=== PATIENT | female | born 1955 | race Caucasian/White ===

== ENCOUNTER → 2021-04-06 07:59 | Outpatient (CLI) | payer OTHER, SELFPAY ==
[2021-04-06 08:38] LABS: Hematocrit 43.8 % (37-47); Hemoglobin 14.3 g/dL (12.0-15.0); Mean Corp Hgb Conc 32.6 g/dL (32-36); Mean Corpuscular Hgb 28.4 pg (27.0-32.0); Mean Corpuscular Volume 86.9 fL (81-99); Platelet Count 264 K/mm3 (150-450); RBC Distribution Width CV 13.7 % (11.6-14.6); RBC Distribution Width SD 44.2 fl (35.1-43.9); Red Blood Count 5.04 M/mm3 (4.2-5.4); White Blood Count 6.9 K/mm3 (4.4-11.0)
[2021-04-06 09:29] LABS: ALB/GLOB Ratio 0.9 RATIO (0.9-2.4); AST(SGOT) 17 U/L (15-37); Alanine Aminotransfer ALT/SGPT 24 U/L (13-56); Albumin, Serum 3.5 g/dL (3.2-5.0); Alkaline Phosphatase 68 U/L (45-117); Anion Gap 5 (5-15); BUN 15 mg/dL (7-18); BUN/Creat Ratio 17.1 RATIO (10-20); Calcium,Total 8.9 mg/dL (8.5-10.1); Chloride 110 mmol/L (98-107); Cholesterol 155 mg/dL (200); Creatinine, Serum 0.88 mg/dL (0.55-1.02); EST Glomerular Filtration Rate 69 mL/min (>60); Est Glom Filt Rate - Afr Amer 84 mL/min (>60); Globulin 3.9 g/dL (2.2-4.2); Glucose 107 mg/dL (74-106); High Density Lipoprotein 56 mg/dL; Potassium 3.9 mmol/L (3.5-5.1); Protein, Total 7.4 g/dL (6.4-8.2); Sodium Level 139 mmol/L (136-145); Triglycerides 74 mg/dL; Very Low Density Lipoprotein 15 mg/dL (5-40)
== END ==
LOC: LAB 08:07
DX: E66.9 Obesity, unspecified (principal); F41.9 Anxiety disorder, unspecified; Z13.220 Encounter for screening for lipoid disorders
CPT/HCPCS: 36415; 80053; 80061; 85027

== ENCOUNTER → 2023-12-28 | Outpatient (CLI) | payer OTHER, SELFPAY | END | disposition home or self-care (01) | LOC: LABSPEC 16:05 | PROVIDERS: Referring Provider Urology; Visit Provider Urology | DX: N39.0 Urinary tract infection, site not specified (principal) | CPT/HCPCS: 87086; 87088; 87186 ==

== ENCOUNTER → 2024-01-08 | Outpatient (CLI) | payer MEDICARE, SELFPAY ==
--- NOTE | 2024-01-08 12:43 | CT_ITS ---
ACR Level 3 findings have been noted. An addendum which confirms receipt of the report will follow. HISTORY: Dysuria, recurrent UTI, history of melanoma removed from left arm. TECHNIQUE: Helically acquired images were obtained of the abdomen and pelvis before and after the intravenous administration of 100 mL Isovue 300. Delayed images also obtained. A radiation dose optimization technique was used for this scan. 589 images. COMPARISON: None. FINDINGS: LOWER CHEST: Lung bases clear. BOWEL: Small hiatal hernia. Bowel including appendix nondilated. Colonic diverticulosis without focal inflammatory change observed. PERITONEUM: No significant ascites. Enlarged mesenteric lymph nodes with surrounding stranding measuring up to 2.6 x 2.7 cm. Enlarged retroperitoneal lymph nodes measuring up to 1.3 x 2.6 cm preaortic and 1.5 x 2.6 cm left para-aortic. Mildly enlarged retrocaval lymph nodes also seen. LIVER: No enhancing mass. GALLBLADDER/BILIARY TREE: Gallbladder present. SPLEEN/PANCREAS: Homogeneous and nonenlarged. KIDNEYS: No nephrolithiasis or hydronephrosis. Subcentimeter left upper pole cyst ADRENAL GLANDS: 1.9 cm low-attenuation right adrenal nodule. VESSELS: No abdominal aortic aneurysm. Mild atherosclerosis. PELVIC ORGANS: 5 x 10 mm enhancing nodule of the right anterior bladder wall . BONES: Degenerative change. Scattered small bone islands. CT/CT Abd/Pelvis W/WO Contrast IMPRESSION: Mesenteric and retroperitoneal lymphadenopathy, suspicious for neoplasm such as lymphoma or metastatic disease. Small enhancing right bladder wall lesion, also concerning for neoplasm. Right adrenal adenoma. Small left renal cyst. Colonic diverticulosis without acute diverticulitis Electronically Signed: Yarelis Escalante MD at 12:44 EDT ,
[2024-01-08 13:10] LABS: CREATININE FINGERSTICK 1.1 mg/dL (0.55-1.02)
== END | disposition home or self-care (01) ==
PROVIDERS: Referring Provider Urology; Visit Provider Urology
DX: N30.20 Other chronic cystitis without hematuria (principal)
CPT/HCPCS: 74178; Q9967; A4216

== ENCOUNTER → 2024-01-26 | Outpatient (CLI) | payer MEDICARE, SELFPAY ==
--- NOTE | 2024-01-26 13:27 | EKG12_ITS ---
Test Reason : PRE OP Blood Pressure : / mmHG Vent. Rate : 076 BPM Atrial Rate : 076 BPM P-R Int : 104 ms QRS Dur : 072 ms QT Int : 392 ms P-R-T Axes : 003 052 044 degrees QTc Int : 441 ms Sinus rhythm with sinus arrhythmia with short [place] Otherwise normal ECG Confirmed by IRVING MENDEZ, SEPIDEH ([id number]), order editor POWER KONG ([id number]) on 01/27/2024 9:32:08 AM Referred By: Checo Gonzáles Confirmed By:THOR VILLATORO MD
[2024-01-26 14:39] LABS: Hematocrit 42.3 % (37-47); Hemoglobin 13.7 g/dL (12.0-15.0); Mean Corp Hgb Conc 32.4 g/dL (32-36); Mean Corpuscular Hgb 27.9 pg (27.0-32.0); Mean Corpuscular Volume 86.2 fL (81-99); Mean Platelet Vol. 10.9 fl (6.2-12.0); Platelet Count 265 K/mm3 (150-450); RBC Distribution Width CV 13.6 % (11.6-14.6); RBC Distribution Width SD 42.4 fl (35.1-43.9); Red Blood Count 4.91 M/mm3 (4.2-5.4); White Blood Count 9.1 K/mm3 (4.4-11.0)
[2024-01-26 15:00] LABS: Anion Gap 5 (5-15); BUN 17 mg/dL (7-18); BUN/Creat Ratio 21.6 RATIO (10-20); Calcium,Total 9.3 mg/dL (8.5-10.1); Chloride 110 mmol/L (98-107); Creatinine, Serum 0.79 mg/dL (0.55-1.02); EST Glomerular Filtration Rate 78 mL/min (>60); Est Glom Filt Rate - Afr Amer 94 mL/min (>60); Glucose 87 mg/dL (74-106); Potassium 3.7 mmol/L (3.5-5.1); Sodium Level 139 mmol/L (136-145)
== END | disposition home or self-care (01) ==
PROVIDERS: Referring Provider Urology; Visit Provider Urology
DX: Z01.810 Encounter for preprocedural cardiovascular examination (principal); Z01.812 Encounter for preprocedural laboratory examination
CPT/HCPCS: 36415; 80048; 85027; 93005

== ENCOUNTER 2024-02-17 05:35 | Day surgery (SDC) | payer MEDICARE, SELFPAY ==
[2024-02-16 13:41] LABS: International Normalized Ratio 0.9; Prothrombin Time (Protime)PT. 12.4 SECONDS (11.7-14.9)
[2024-02-16 13:42] LABS: Partial Thromboplast Time 27.5 Seconds (24.1-36.2)
[2024-02-16 14:18] LABS: AST(SGOT) 18 U/L (15-37); Alanine Aminotransfer ALT/SGPT 23 U/L (13-56); Albumin, Serum 3.7 g/dL (3.2-5.0); Alkaline Phosphatase 78 U/L (45-117); Bilirubin, Direct 0.14 mg/dL (0.00-0.30); Globulin 3.8 g/dL (2.2-4.2); Protein, Total 7.5 g/dL (6.4-8.2)
[2024-02-17] VITALS (8 sets, daily range): BP systolic 163–179; BP diastolic 68–91; PULSE 66–76; RESP 16; TEMP 36.1–36.2; O2SAT 97–100; BMI 33.5
[2024-02-17] MEDS: Lactated Ringers 1,000 ML 15 ML IV (06:22)
--- NOTE | 2024-02-17 07:20 | PRE.ANES_ITS ---
ASA Classification* ASA Classification ASA Classification: 3 Assessment & Plan Anesthesia* Anesthesia Assessment Anesthesia Assessment: Discussed sedation and/or anesthesia options, risks, benefits, and alternatives with patient/parents/legal guardian/POA. Questions invited. The patient/parents/legal guardian/POA seems to understand and agrees to proceed with anesthesia plan. Reviewed the physical assessment, medical history, allergy history and patient home medications list prior to surgery/procedure/anesthetic and documented any changes. Performed airway and anesthesia risk assessments. Anesthesia Type Anesthesia Type: General Anesthesia Focused Assessment* Temperature: 97.0 F Pulse Rate: 70 Blood Pressure: 169/73 Respiratory Rate: 16 Pulse Ox: 97 Airway Assessment Mouth opens: >3 cm Mallampati Score: II Focused Labs Anesthesia Preop lab: CBC WBC 9.1 K/mm3 (4.4-11.0) 01/26/24 14:07 RBC 4.91 M/mm3 (4.2-5.4) 01/26/24 14:07 Hgb 13.7 g/dL (12.0-15.0) 01/26/24 14:07 Hct 42.3 % (37-47) 01/26/24 14:07 Plt Count 265 K/mm3 (150-450) 01/26/24 14:07 CHEMISTRY Potassium 3.7 mmol/L (3.5-5.1) 01/26/24 14:07 Sodium 139 mmol/L (136-145) 01/26/24 14:07 BUN 17 mg/dL (7-18) 01/26/24 14:07 Creatinine 0.79 mg/dL (0.55-1.02) 01/26/24 14:07 Glucose 87 mg/dL (74-106) 01/26/24 14:07 COAG PT 12.4 SECONDS (11.7-14.9) 02/16/24 13:20 Pre-Assessment Diagnosis/Proposed Procedure Planned Operative Procedure(s): Cysto,Transurethra Resec BladderTum,Large,Olympus,Hardy C Anesthesia History Anesthesia History - exploration engineer: Anesthesia History - exploration engineer Hx Hospitalization No 02/15/24 14:48 Any Problems With Anesthesia No 02/15/24 14:48 Cholinesterase deficiency No 02/15/24 14:48 You/Your Family Experience No 02/15/24 14:48 fever (hyperthermia) with Relationship Recent Exposure to Contagious No 02/17/24 06:19 Disease Does patient have nerve No: TENS PRN 02/15/24 14:48 stimulator Patient instructed to have device shut off --Does patient have Pacemaker No 02/17/24 06:19 or ICD? When Was Last Pacemaker Check QUESTION #4 FULL TEXT: You/Your Family Experience fever (hyperthermia) with Anesthesia Last Oral Intake Last Oral intake: Last Oral Intake NPO since 20:00 02/17/24 06:19 Meds taken in AM with sips of No 02/17/24 06:19 water? Meds patient instructed to take am of surgery PONV PONV - exploration engineer: PONV - exploration engineer Female Yes 02/15/24 14:48 HX of Motion Sickness Yes 02/15/24 14:48 HX of N/V After Surgery Yes 02/15/24 14:48 Non-Smoker No 02/15/24 14:48 Duration of Surgery greater Yes 02/15/24 14:48 than 60 minutes Number of Risk Factors 4 02/15/24 14:48 PONV Score Severe Risk 02/15/24 14:48 Height & Weight Height & Weight: Anesthesia: Height & Weight Height 5 ft 2 in 02/17/24 06:19 Weight: 83 kg 02/17/24 06:19 Body Mass Index (BMI) 33.5 02/17/24 06:19 Respiratory Assessment Respiratory Assessment - exploration engineer: Respiratory Tract Infection Hx - exploration engineer Hx Respiratory Tract Infection No 02/15/24 14:48 STOP Sleep Apnea STOP Sleep Apnea - exploration engineer: STOP Sleep Apnea - exploration engineer Hx Hypertension Yes: ONLY AT DR OFFICE 02/15/24 14:48 Hx Sleep Apnea No 02/15/24 14:48 CPAP BIPAP Do you snore loudly (louder No 02/15/24 14:48 than talking or can be heard Do you often feel tired/ No 02/15/24 14:48 fatigued/ sleepy during daytime? Has anyone observed you stop No 02/15/24 14:48 breathing during sleep? STOP Results Negative 02/15/24 14:48 QUESTION #5 FULL TEXT : Do you snore loudly (louder than talking or can be heard through closed doors)? Tobacco Use History Tobacco Use History - exploration engineer: Tobacco Use History - exploration engineer Tobacco Use Smoking Status Former smoker 02/15/24 14:48 Hx Tobacco Use Yes: SMOKES MARIJUANA 02/15/24 14:48 Years Smoking Packs Smoked per Day Smoking Cessation Date was No - quit smoking greater 02/15/24 14:48 within the last 15 years than 15 years ago Hx Smoking Cessation Date Hx Smoking Cessation Counseling Hematologic Medial History Hematologic Hx - exploration engineer: Hematologic Medical Hx - photoengraving helper Hx of Blood Transfusion No 02/15/24 14:48 Hx of Transfusion in last 3 No 02/15/24 14:48 Months Date of Last Transfusion (if within last 3 months) Ever experience any problems No 02/15/24 14:48 with transfusion(s)? Specify any problems Hx of Preganancy in last 3 No 02/15/24 14:48 Months Nurse Filling Out Transfusion MGRIFFITH 02/15/24 14:48 & Questions: Date: 02/15/24 02/15/24 14:48 Time: 14:52 02/15/24 14:48 Patient unable to answer at this time (ie. confused, unrespo /Reproduction History /Reproductive History - exploration engineer: /Reproductive Hx- exploration engineer Hx Now No 02/15/24 14:48 Gestational Age (in weeks): EDC: Hx Hx Para Hx Section SAB No 02/15/24 14:48 Active Medications Active Medications: Current Medications Generic Name Dose Route Start Last Admin Trade Name Freq PRN Reason Stop Dose Admin Cefazolin Sodium 2 gm/ Sodium 110 mls @ 150 mls/hr 02/17/24 07:30 Chloride IV 02/17/24 08:13 PREOP ONE Mitomycin 40 mg/ N/A 40 mls @ 2,400 mls/hr 02/17/24 07:30 INSTILLAT 02/17/24 07:31 X1 ONE Lactated Ringer's 1,000 mls @ 15 mls/hr 02/17/24 06:15 02/17/24 06:22 IV 15 mls/hr .Q48H JAMEE Administration PFSH Medical History Wears glasses Marijuana use Arthritis Bladder disease Easy bruising Injury of back PONV (postoperative nausea and vomiting) History of diverticulitis Heartburn History of hiatal hernia Former smoker Cardiology follow-up encounter Home Medications ?Medication ?Instructions ?Recorded ?Last Taken ?Type cetirizine 10 mg tablet (24Hour 10 mg PO DAILY PRN allergy symptoms 02/15/24 Unknown History Allergy) naproxen sodium 220 mg capsule 220 mg PO BID PRN pain 02/15/24 Unknown History (Aleve) Allergy/AdvReac Type Severity Reaction Status Date / Time amoxicillin (From Augmentin) Allergy Intermediate Hives Verified 02/17/24 06:19 clavulanic acid (From Allergy Intermediate Hives Verified 02/17/24 06:19 Augmentin) latex Allergy Intermediate Rash Verified 02/17/24 06:19 Penicillins (PCN) Allergy Intermediate PT UNSURE Verified 02/17/24 06:19 OF REACTION Surgical History History of cardiac catheterization History of colonoscopy History of melanoma excision Social History Smoking Status: Former smoker Review of Systems (Anesthesia) ROS Narrative System reviewed and no additional complaints, except as documented.
[2024-02-17] MEDS: Cefazolin 2 GM in 0.9% Normal Saline (100mL Bag) 100 ML IV (07:25)
--- NOTE | 2024-02-17 07:30 | BLB_PTH ---
PATIENT: SHAMIKA MARCANO LOC: [facility] U#:[id number] AGE/SX: 68/F ROOM: RE02/17/[address]: Dr. Checo Gonzáles MD : 1955 BED: DIS: 02/17/2024 SPEC #: [id number] RECD: 02/17/24 13:07 STATUS: MAUREEN FERREIRAHorace #: [id number] ANNEMARIE: 02/17/24 07:[address]: Checo Gonzáles DEPT: SURGICAL PATHOLOGY RECD BY: Johnson Avelar ENTERED: 02/17/24 13:36 SP TYPE: TURB OTHR DR: Arianna Blanc, WHARF WORKER-C Tissues: Urinary bladder, NOS Procedures: Surgery Specimen Level V HEADER OPERATION: Transurethral resection, bladder tumor PRE-OP DIAGNOSIS: Neoplasm of uncertain behavior of bladder TISSUE SUBMITTED: Bladder tumor tissue MICROSCOPIC DIAGNOSIS Bladder tumor, transurethral resection: Noninvasive papillary urothelial carcinoma. See cancer summary in the comment section. SJ/mr 02/18/2024 COMMENT BLADDER CANCER (TUR) SUMMARY Procedure: Transurethral resection of bladder tumor (TURBT) Tumor site: Not specified Histologic type: Papillary urothelial carcinoma, noninvasive Associated epithelial lesions: None identified Histologic grade: Low grade (1-2/3) Tumor configuration: Papillary Muscularis propria presence: No muscularis propria (detrusor muscle) identified Lymphvascular invasion: Not identified Tumor extension: Non-invasive papillary carcinoma. 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 Case has been reviewed in consultation with Dr. Nash who concurs with the above diagnosis. IDC:AM MICROSCOPIC DESCRIPTION Slides are reviewed. GROSS DESCRIPTION Received in fixative is one container labeled with the patient's name and designated Bladder tumor tissue. The specimen consists of two irregular fragments of light israel soft tissue that in aggregate measure 0.5 x 0.2 x 0.1 cm. The specimen is totally submitted in one cassette. MARY/ 02/17/2024 TC:0 CPT:75613
[2024-02-17] MEDS: MitoMYcin 40 MG in Syringe 1 EACH 2400 MG INSTILLAT (08:08)
--- NOTE | 2024-02-17 08:10 | PCM.HP.STD ---
HPI - General General Date of Service: 02/17/24 Chief Complaint: Bladder cancer multiple HPI Narrative SHAMIKA MARCANO, is a 68 F who presents for resection of bladder tumors multiple within the bladder and instillation of Mitomycin-C PFSH Medical History Wears glasses Marijuana use Arthritis Bladder disease Easy bruising Injury of back PONV (postoperative nausea and vomiting) History of diverticulitis Heartburn History of hiatal hernia Former smoker Cardiology follow-up encounter Home Medications ?Medication ?Instructions ?Recorded ?Last Taken ?Type cetirizine 10 mg tablet (24Hour 10 mg PO DAILY PRN allergy symptoms 02/15/24 Unknown History Allergy) naproxen sodium 220 mg capsule 220 mg PO BID PRN pain 02/15/24 Unknown History (Aleve) Allergy/AdvReac Type Severity Reaction Status Date / Time amoxicillin (From Augmentin) Allergy Intermediate Hives Verified 02/17/24 06:19 clavulanic acid (From Allergy Intermediate Hives Verified 02/17/24 06:19 Augmentin) latex Allergy Intermediate Rash Verified 02/17/24 06:19 Penicillins (PCN) Allergy Intermediate PT UNSURE Verified 02/17/24 06:19 OF REACTION Surgical History History of cardiac catheterization History of colonoscopy History of melanoma excision Social History Smoking Status: Former smoker Vital Signs Vital Signs Vital Signs: 02/17/24 06:19 02/17/24 06:19 02/17/24 07:20 Temperature 97.0 F L 97.0 F L Temperature Source Temporal Pulse Rate 70 70 Respiratory Rate 16 16 Respiratory Pattern Normal Blood Pressure 169/73 H 169/73 H Blood Pressure Mean 105 Blood Pressure Source Monitor Blood Pressure Position Semi-Fowlers Blood Pressure Location Left Arm Pulse Ox 97 97 Oxygen Delivery Method Room Air Weight Weight: 83 kg Body Mass Index (BMI) 33.5 Results Lab / Micro Data Labs: Laboratory Results - last 24 hr 02/16/24 13:20: PT 12.4, INR 0.9, APTT 27.5, Total Bilirubin 0.60, Direct Bilirubin 0.14, AST 18, ALT 23, Alkaline Phosphatase 78, Total Protein 7.5, Albumin 3.7, Globulin 3.8
--- NOTE | 2024-02-17 08:11 | DCINST_ITS ---
Discharge Instructions Diet Discharge Diet: No restrictions Activity Discharge Activity: Return to Normal Activity and May Not Drive (while taking narcotic pain medications.) Dressing / Incision Call your doctor if you observe: Fever of 101 or Higher Follow Up Care Please Follow Up With: Checo Gonzáles MD When: Call [phone] for an appointment Test Results: Test results from this visit will be discussed in further detail at your follow- up appointment, if applicable. Discharge Plan Admission Primary Reason for Your Visit: Resection of bladder tumors Attending Provider: Checo Gonzáles Primary Care Provider: Arianna Blanc Instructions Patient Instructions: Bladder Cancer TUR Print Language: Croatian Discharge Orders/Prescriptions Prescriptions: Continued cetirizine [24Hour Allergy] 10 mg tablet 10 mg PO DAILY PRN (Reason: allergy symptoms) naproxen sodium [Aleve] 220 mg capsule 220 mg PO BID PRN (Reason: pain) Referrals / Follow Up: Checo Gonzáles MD [Med Staff - Active Staff] - Disposition Disposition (needs filled in before D/C Order can be placed): Home, Self Care
--- NOTE | 2024-02-17 08:11 | PCM.OPRPT ---
Report of Operation Date of Procedure: 02/17/24 Pre-Operative Diagnosis: Bladder tumors multiple Post-Operative Diagnosis: The same Surgery/Procedure Performed:: Transurethral section of multiple bladder tumors instillation of Mitomycin-C Description of Surgical Findings:: Patient was taken back to the operating room after smooth induction of anesthesia she was placed in dorsolithotomy position. The urethra vaginal area prepped and draped in usual fashion first 1 in the by the 21 Spanish rigid cystourethroscope and inspected the bladder she had an innumerable amount of small little tumor throughout her bladder. I then switched over to the resectoscope and then we get biopsies of several the sites this was sent off to the specimen specimen is quite small because of the rest of the time it is cauterized all these tumor sites. And at the end we counted that there was 12 sites within her bladder that had to be cauterized for little tiny tumors mucosal lesions within the bladder and numerous amount. We switched over to bluelight and white light cystoscopy to confirm maintenance the end of the visible papillary tumors a lot of mucosal lesions but at that point hard to tell if his open the cauterization but she had extensive amount of smaller tumor throughout the bladder that they cauterized. In total I would estimate that the size of the tumors were probably about 2.5 cm in total size. At the end we placed a catheter in the bladder with instillation Mitomycin-C and we will see her back in the office to review the biopsies probably should show bladder cancer probably low-grade and because of the insensitive involvement of the bladder primary would recommend BCG therapy for control of the disease. Surgeon: Checo Gonzáles Type of Anesthesia: General Drains: lopez Estimated Blood Loss (mL): 0 Admit VTE Documentation VTE Present on Admission: No VTE Mechan Device Prophylaxis: SCD's VTE Pharm Prophylaxis ordered?: No
--- NOTE | 2024-02-17 08:25 | PCM.POST.ANE ---
Anesthesia: Postop Eval I Current Vital Signs Temperature: 97.2 F Pulse Rate: 76 Blood Pressure: 179/91 Respiratory Rate: 16 Pulse Ox: 99 Oxygen Delivery Method: Simple Mask Oxygen Flow Rate (L/min): 6 Assessment Airway patent: Yes Spontaneous unlabored respirations: Yes Mental status: Awake and Calm nausea: No Vomiting: No Anesthesia Complication: No Fluid Hydration Crystalloid volume administer (ml): 700 Total IV fluid infused: 700 Progress Note Anesthesia document: Postop Eval 1 completed: Yes
--- NOTE | 2024-02-17 09:33 | POSTOPAN2_ITS ---
Anesthesia Postop Eval I Sum Postop Eval Completion status Anesthesia document: Postop Eval 1 completed: Yes Anesthesia Postop Eval I Summary Anesthesia Postop Eval I Summary: Anesthesia Postop Eval I: Assessment Summary Airway patent Yes 02/17/24 08:25 INSPECTOR EXPERIMENTAL ASSEMBLY.[email or web address] Spontaneous unlabored Yes 02/17/24 08:25 INSPECTOR EXPERIMENTAL ASSEMBLY.KAYLIN respirations Mental status Awake,Calm 02/17/24 08:25 INSPECTOR EXPERIMENTAL ASSEMBLY.KAYLIN nausea No 02/17/24 08:25 INSPECTOR EXPERIMENTAL ASSEMBLY.KAYLIN Vomiting No 02/17/24 08:25 INSPECTOR EXPERIMENTAL ASSEMBLY.KAYLIN Anesthesia Postop Eval I: Fluid Summary Crystalloid volume administer 700 02/17/24 08:25 INSPECTOR EXPERIMENTAL ASSEMBLY.KAYLIN (ml) Colloids volume administered ( ml) Blood Product volume administered (ml) Total IV fluid infused 700 02/17/24 08:25 INSPECTOR EXPERIMENTAL ASSEMBLY.KAYLIN Anesthesia Postop Eval I: Summary Notes Anesthesia Complication No 02/17/24 08:25 INSPECTOR EXPERIMENTAL ASSEMBLYLINDSEY Anesthesia Complication Comment: Post-operative progress note Anesthesia: Postop Eval II Evaluation Mental status: Awake Pain Level: 0 nausea: No Vomiting: No Complications Anesthesia Complication: No
--- NOTE | 2024-02-17 09:33 | PCM.POSTANE2 ---
Anesthesia Postop Eval I Sum Postop Eval Completion status Anesthesia document: Postop Eval 1 completed: Yes Anesthesia Postop Eval I Summary Anesthesia Postop Eval I Summary: Anesthesia Postop Eval I: Assessment Summary Airway patent Yes 02/17/24 08:25 RIB [email or web address].[email or web address] Spontaneous unlabored Yes 02/17/24 08:25 RIB KNITTER.[email or web address] respirations Mental status Awake,Calm 02/17/24 08:25 RIB KNITTER.KAYLIN nausea No 02/17/24 08:25 RIB KNITTER.KAYLIN Vomiting No 02/17/24 08:25 RIB KNITTER.KAYLIN Anesthesia Postop Eval I: Fluid Summary Crystalloid volume administer 700 02/17/24 08:25 RIB KNITTER.KAYLIN (ml) Colloids volume administered ( ml) Blood Product volume administered (ml) Total IV fluid infused 700 02/17/24 08:25 RIB [email or web address].KAYLIN Anesthesia Postop Eval I: Summary Notes Anesthesia Complication No 02/17/24 08:25 RIB KNITTERLINDSEY Anesthesia Complication Comment: Post-operative progress note Anesthesia: Postop Eval II Evaluation Mental status: Awake Pain Level: 0 nausea: No Vomiting: No Complications Anesthesia Complication: No
== END 2024-02-17 09:46 | disposition home or self-care (01) ==
LOC: SDC 05:35 → AC 05:36
PROVIDERS: Anesthesiology; PCP Nurse Practitioner Family; Referring Provider Urology; Visit Provider Urology
PROC: 0T5B8ZZ Destruction of Bladder, Via Natural or Artificial Opening Endoscopic (ICD-10-PCS; CPT 51720; principal; 2024-02-17 07:20)
DX: C67.9 Malignant neoplasm of bladder, unspecified (principal); F12.90 Cannabis use, unspecified, uncomplicated; Z79.899 Other long term (current) drug therapy; Z87.891 Personal history of nicotine dependence
CPT/HCPCS: 52235; 51720; 00910; 36415; 80076; 85610; 85730; 88307; J7120; J9280; J2405

== ENCOUNTER → 2024-03-01 | Outpatient (CLI) | payer MEDICARE, SELFPAY | END | disposition home or self-care (01) | LOC: LABSPEC 16:26 | PROVIDERS: PCP Nurse Practitioner Family; Referring Provider Urology; Visit Provider Urology | DX: C67.8 Malignant neoplasm of overlapping sites of bladder (principal); R30.0 Dysuria | CPT/HCPCS: 87077; 87086; 87088; 87186 ==

== ENCOUNTER → 2024-03-10 | Outpatient (CLI) | payer MEDICARE, SELFPAY | END | disposition home or self-care (01) | LOC: LAB 14:58 | PROVIDERS: PCP Nurse Practitioner Family; Referring Provider Urology; Visit Provider Urology | DX: N30.20 Other chronic cystitis without hematuria (principal) | CPT/HCPCS: 87086 ==

== ENCOUNTER → 2024-06-16 | Outpatient (CLI) | payer MEDICARE, SELFPAY ==
[2024-06-16 16:44] LABS: Hematocrit 43.4 % (37-47); Mean Corp Hgb Conc 32.3 g/dL (32-36); Mean Corpuscular Hgb 27.9 pg (27.0-32.0); Mean Corpuscular Volume 86.6 fL (81-99); Mean Platelet Vol. 10.8 fl (6.2-12.0); Platelet Count 260 K/mm3 (150-450); RBC Distribution Width CV 13.6 % (11.6-14.6); RBC Distribution Width SD 43.1 fl (35.1-43.9); Red Blood Count 5.01 M/mm3 (4.2-5.4); White Blood Count 10.2 K/mm3 (4.4-11.0)
[2024-06-16 17:11] LABS: Anion Gap 4 (5-15); BUN 15 mg/dL (7-18); BUN/Creat Ratio 20.2 RATIO (10-20); Chloride 110 mmol/L (98-107); Creatinine, Serum 0.74 mg/dL (0.55-1.02); EST Glomerular Filtration Rate 83 mL/min (>60); Est Glom Filt Rate - Afr Amer 101 mL/min (>60); Glucose 98 mg/dL (74-106); Potassium 3.5 mmol/L (3.5-5.1); Sodium Level 139 mmol/L (136-145)
== END | disposition home or self-care (01) ==
PROVIDERS: PCP Nurse Practitioner Family; Referring Provider Urology; Visit Provider Urology
DX: Z01.812 Encounter for preprocedural laboratory examination (principal)
CPT/HCPCS: 36415; 80048; 85027

== ENCOUNTER → 2024-06-24 | Outpatient (CLI) | payer MEDICARE, SELFPAY ==
--- NOTE | 2024-06-24 11:50 | BLA_PTH ---
PATIENT: SHAMIKA MARCANO LOC: [place] U#:[id number] AGE/SX: 68/F ROOM: RE06/24/[address]: Dr. Checo Gonzáles MD : 1955 BED: DIS: 06/24/2024 SPEC #: [id number] RECD: 06/24/24 15:00 STATUS: MAUREEN MASTERSON #: [id number] ANNEMARIE: 06/24/24 11:[address]: Checo Gonzáles DEPT: SURGICAL PATHOLOGY RECD BY: Rudi Austin ENTERED: 06/27/24 09:06 SP TYPE: BLADDER BX OTHR DR: Arianna Blanc, [place] [facility] Tissues: A - Urinary bladder, NOS B - Urinary bladder, NOS Procedures: Surgery Specimen Level IV HEADER OPERATION: Transurethral resection, bladder tumor PRE-OP DIAGNOSIS: Malignant neoplasm of overlapping sites of bladder, dysuria TISSUE SUBMITTED: A- Anterior bladder wall, bladder tumor, B- Posterior bladder wall, bladder tumor MICROSCOPIC DIAGNOSIS A. Bladder tumor, anterior bladder wall, transurethral resection: Noninvasive papillary urothelial carcinoma. See cancer summary in the comment section. B. Bladder tumor, posterior bladder wall, transurethral resection: A fragment of urothelial mucosa with epithelial hyperplasia with focal atypia. Chronic inflammation. Negative for malignancy. 06/28/2024 COMMENT A. BLADDER CANCER (TUR) SUMMARY Procedure: Transurethral resection of bladder tumor (TURBT) Tumor site: Anterior bladder wall Histologic type: Papillary urothelial carcinoma, noninvasive Associated epithelial lesions: None identified Histologic grade: Low grade (1 / 3) Tumor configuration: Papillary Muscularis propria presence: No muscularis propria (detrusor muscle) identified Lymphvascular invasion: Not identified Tumor extension: Non-invasive papillary carcinoma. 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 Case has been reviewed in consultation with Dr. Nash who concurs with the above diagnosis. IDC:AM MICROSCOPIC DESCRIPTION Slides are reviewed. GROSS DESCRIPTION A. Received in fixative is one container labeled with the patient's name and designated Bladder tumor #1- anterior bladder wall. The specimen consists of multiple irregular fragments of light israel soft tissue that in aggregate measure 0.5 x 0.5 x 0.1 cm. The specimen is totally submitted in one cassette. B. Received in fixative is one container labeled with the patient's name and designated Bladder tumor #2, posterior bladder wall. The specimen consists of one irregular fragment of light israel soft tissue that measures 0.2 x 0.2 x 0.1 cm. The specimen is totally submitted in one cassette. SJ 06/27/2024 TC:0 CPT:77209p1
== END | disposition home or self-care (01) ==
LOC: LABSPEC 15:19
PROVIDERS: PCP Nurse Practitioner Family; Referring Provider Urology; Visit Provider Urology
DX: C67.3 Malignant neoplasm of anterior wall of bladder (principal); N30.90 Cystitis, unspecified without hematuria; R30.0 Dysuria
CPT/HCPCS: 88305

== ENCOUNTER → 2024-07-18 | Outpatient (CLI) | payer MEDICARE, SELFPAY | END | disposition home or self-care (01) | LOC: LABSPEC 16:25 | PROVIDERS: PCP Nurse Practitioner Family; Referring Provider Urology; Visit Provider Urology | DX: R30.0 Dysuria (principal) | CPT/HCPCS: 87086; 87088 ==